=== PATIENT | male | born 1960 | race Caucasian/White ===

== ENCOUNTER 2016-08-28 12:38 | Observation (INO) | payer SELFPAY ==
[~2016-08-28] VITALS: Ht 172.7 cm; Wt 114.5 kg
[2016-08-28 13:10] LABS: BASOPHILS 0.2 % (0.0-2.0); EOSINOPHILS 1.3 % (0-7); HEMATOCRIT 50.4 % (42.0-54.0); HEMOGLOBIN 17.5 g/dL (13.5-17.5); IMMATURE GRANULOCYTES 0.2 % (0-5); LYMPHOCYTES 20.5 % (15-50); MCH 30.6 pg (26.0-34.0); MCHC 34.7 g/dL (31.0-37.0); MCV 88.1 fL (80.0-100.0); MEAN PLATELET VOLUME 11.4 fL (7.4-10.4); MONOCYTES 8.6 % (2-11); NEUTROPHILS 69.2 % (40-80); PLATELET COUNT 201 10x3/uL (130-400); RBC 5.72 10x6/uL (4.20-6.10); RDW 13.9 % (11.5-14.5); WBC 12.1 10x3/uL (4.8-10.8)
[2016-08-28 13:41] LABS: ALBUMIN 3.8 g/dL (3.4-5.0); ALKALINE PHOSPHATASE 69 U/L (46-116); ALT (SGPT) 33 U/L (10-68); BILIRUBIN - TOTAL 0.51 mg/dL (0.2-1.3); CALC OSMOLALITY 279 mosm/kg (275-300); CALCIUM 9.5 mg/dL (8.5-10.1); CHLORIDE - SERUM 104 mmol/L (98-107); CREATININE - SERUM 0.8 mg/dL (0.6-1.3); GLUCOSE 117 mg/dL (74-106); POTASSIUM - SERUM 4.1 mmol/L (3.5-5.1); PROTEIN - SERUM 7.2 g/dL (6.4-8.2); SODIUM 140 mmol/L (136-145); UREA NITROGEN 12 mg/dL (7-18); eGFR NON AFRICAN AMERICAN > 90 mL/min (90-120)
[2016-08-28 13:48] LABS: CHOL - HDL RATIO 6.6 ratio (2.3-4.9); CHOLESTEROL, TOTAL 225 mg/dL (0-200); CKMB 1.1 U/L (0.0-3.6); CREATINE KINASE 135 UL (21-232); HDL CHOLESTEROL 34 mg/dL (32-96); LDL CHOLESTEROL 112 mg/dL (0-100); LDL-HDL RATIO 3.3 ratio (1.5-3.5); TRIGLYCERIDE 398 mg/dL (30-200)
[2016-08-28 13:50] LABS: TROPONIN-I < 0.017 ng/mL (0.000-0.060)
[2016-08-28 17:43] VITALS: BP 174/88; Ht 172.7 cm; Wt 114.5 kg
--- NOTE | 2016-08-28 19:42 | NUR ---
NICOTINE PATCH PLACED TO RIGHT ARM, PT DENIES PAIN OR NEEDS.
[2016-08-28 20:34] VITALS: BP 186/105
--- NOTE | 2016-08-28 22:36 | NUR ---
EYES CLOSED, RESPEPERATIONS EVEN, NO S/S DISTRESS NOTED.
[2016-08-29 00:26] VITALS: BP 151/97
--- NOTE | 2016-08-29 01:00 | NUR ---
SPOKE WITH DR TAYLOR, INFORMED HIM OF ELEVATED BP OF 186/105 AND THAT PT IS C/O TIGHNESS IN CHEST. ORDERS GIVNE TO GIVE TYLENOL 1000 MG EVERY 6 HOURS NEEDED FOR PAIN AND GIVE NORVASC 5 MG NOW AND DAILY. NOTIFIED DOPE WEIGH OPERATOR.
[2016-08-29 02:25] LABS: BASOPHILS 0.2 % (0.0-2.0); EOSINOPHILS 2.7 % (0-7); HEMATOCRIT 47.7 % (42.0-54.0); HEMOGLOBIN 16.6 g/dL (13.5-17.5); IMMATURE GRANULOCYTES 0.3 % (0-5); LYMPHOCYTES 17.6 % (15-50); MCH 30.8 pg (26.0-34.0); MCHC 34.8 g/dL (31.0-37.0); MCV 88.5 fL (80.0-100.0); MEAN PLATELET VOLUME 11.4 fL (7.4-10.4); MONOCYTES 7.7 % (2-11); NEUTROPHILS 71.5 % (40-80); PLATELET COUNT 168 10x3/uL (130-400); RBC 5.39 10x6/uL (4.20-6.10); RDW 13.8 % (11.5-14.5); WBC 12.4 10x3/uL (4.8-10.8)
[2016-08-29 02:47] LABS: ALBUMIN 3.4 g/dL (3.4-5.0); ALKALINE PHOSPHATASE 62 U/L (46-116); ALT (SGPT) 28 U/L (10-68); BILIRUBIN - TOTAL 0.51 mg/dL (0.2-1.3); CALC OSMOLALITY 274 mosm/kg (275-300); CALCIUM 8.5 mg/dL (8.5-10.1); CARBON DIOXIDE 26.5 mmol/L (21.0-32.0); CHLORIDE - SERUM 102 mmol/L (98-107); GLUCOSE 126 mg/dL (74-106); PROTEIN - SERUM 6.7 g/dL (6.4-8.2); SODIUM 137 mmol/L (136-145); UREA NITROGEN 11 mg/dL (7-18); eGFR NON AFRICAN AMERICAN 82 mL/min (90-120)
[2016-08-29 02:53] LABS: POTASSIUM - SERUM 3.3 mmol/L (3.5-5.1); TROPONIN-I < 0.017 ng/mL (0.000-0.060)
--- NOTE | 2016-08-29 02:57 | NUR ---
SPOKE WITH DR TAYLOR, INFORMED HIM OF ELEVATED BP OF 186/105 AND THAT PT IS COMPLAINING OF TIGHNESS IN CHEST. ORDERS GIVEN TO GIVE TYLENOL 1000 MG EVERY 6 HOURS NEEDED FOR PAIN AND NORVASC 5 MG NOW AND DAILY. ASSEMBLY MACHINE OFFBEARER Claudio JACOB RN NOTIFIED.
[2016-08-29 04:19] VITALS: BP 149/102
--- NOTE | 2016-08-29 04:38 | NUR ---
BUYING INTERN AT BED SIDE TO OBTAIN VITALS, NO NEEDS VOICED.
--- NOTE | 2016-08-29 07:40 | NUR ---
RECEIVED PT IN BED AAOX4 RESP UNLABORED PT DENIES ANY NEEDS OR DISCOMFORT AT THIS TIME NAD NOTED
[2016-08-29 07:58] VITALS: BP 164/109
[2016-08-29 11:54] VITALS: BP 168/97
[2016-08-29 15:39] VITALS: BP 171/97
--- NOTE | 2016-08-29 17:09 | NUR ---
ASSUMED CARE OF PT. C/O HEADACHE. TYLENOL GIVEN FOR RELIEF. WILL MONITOR
--- NOTE | 2016-08-29 19:57 | NUR ---
INITIAL ROUNDS MADE. PT SITTING UP IN BED WATCHING TV. NO NEEDS OR C/O VOICED AT THIS TIME. CALL LIGHT IN REACH. WILL CONT TO MONITOR.
[2016-08-29 20:19] VITALS: BP 176/104
[2016-08-30 00:38] VITALS: BP 155/101
[2016-08-30 04:25] VITALS: BP 160/91
[2016-08-30 05:49] LABS: BASOPHILS 0.2 % (0.0-2.0); EOSINOPHILS 2.4 % (0-7); HEMATOCRIT 48.3 % (42.0-54.0); HEMOGLOBIN 16.7 g/dL (13.5-17.5); IMMATURE GRANULOCYTES 0.2 % (0-5); LYMPHOCYTES 16.4 % (15-50); MCH 30.8 pg (26.0-34.0); MCHC 34.6 g/dL (31.0-37.0); MEAN PLATELET VOLUME 11.4 fL (7.4-10.4); MONOCYTES 7.3 % (2-11); NEUTROPHILS 73.5 % (40-80); PLATELET COUNT 175 10x3/uL (130-400); RBC 5.43 10x6/uL (4.20-6.10); RDW 13.9 % (11.5-14.5)
[2016-08-30 05:58] LABS: HEMOGLOBIN A1C 5.6 % (4.8-6.0)
[2016-08-30 06:25] LABS: ALBUMIN 3.2 g/dL (3.4-5.0); ALKALINE PHOSPHATASE 58 U/L (46-116); ALT (SGPT) 28 U/L (10-68); CALC OSMOLALITY 273 mosm/kg (275-300); CARBON DIOXIDE 27.2 mmol/L (21.0-32.0); CHLORIDE - SERUM 103 mmol/L (98-107); CKMB 0.6 U/L (0.0-3.6); GLUCOSE 125 mg/dL (74-106); PROTEIN - SERUM 6.7 g/dL (6.4-8.2); SODIUM 137 mmol/L (136-145); TROPONIN-I < 0.017 ng/mL (0.000-0.060); UREA NITROGEN 10 mg/dL (7-18); eGFR NON AFRICAN AMERICAN 82 mL/min (90-120)
[2016-08-30 06:26] LABS: POTASSIUM - SERUM 3.8 mmol/L (3.5-5.1)
--- NOTE | 2016-08-30 07:30 | NUR ---
RECEIVED PT IN BED AAOX4 RESP UNLABORED DENIES ANY DISCOMFORT REFUSES TO WEAR TELEMETRY STATES HE IS GOING HOME TODAY ONE WAY OR ANOTHER HAS AGREED TO WAIT AND SEE THE DOCTOR
[2016-08-30 08:38] VITALS: BP 133/89
[2016-08-30] MEDS ORDERED: NORVASC10 MG PO (11:22)
[2016-08-30] MEDS ORDERED: LISINOPRIL10 MG PO (11:22)
--- NOTE | 2016-08-30 12:58 | NUR ---
REVIEWED DISCHARGE INSTRUCTIONS WITH PT STATES UNDERSTANDING COPY GIVEN PT HAD DCD OWN SALINE LOCK SITE FREE OF REDNESS OR EDEMA DID NOT SEE IV CATHETER PT DISCHARGED HOME IN STABLE CONDITION WITH ALL PERSONAL BELONGINGS LEFT UNIT WALKING REFUSED W/C
== END 2016-08-30 12:58 | disposition home or self-care (01) ==
LOC: D.ER 12:38 → OBSVTIME 16:00 → D.M2 16:00
PROVIDERS: Emergency Medicine; Family Medicine; ADMIT Family Medicine
DX: I10 Essential (primary) hypertension (principal); R07.9 Chest pain, unspecified; E78.5 Hyperlipidemia, unspecified; R73.9 Hyperglycemia, unspecified; Z72.0 Tobacco use

== ENCOUNTER 2019-10-15 22:19 | Inpatient (IN) | payer OTHER ==
[~2019-10-15] VITALS: Ht 172.7 cm; Wt 118.2 kg
--- NOTE | ~2019-10-15 | HEMODYNAMI ---
PATIENT:GLENDY PENG MEDICAL RECORD: [id number] : 60 LOCATION:[facility] ADMISSION DATE: 10/16/19 Generatedon:10/17/20197:42 Patient name: GLENDY PENG Patient #: [id number] SSN: : 1960 Date of study: 10/17/2019 Page: Of Hemodynamic Procedure Report Patient Data Patient Demographics Procedure consent was obtained First Name: GLENDY Gender: Male Last Name: GINETTE : 1960 Patient #: [id number] Age: 59 year(s) Race: Unknown Additional ID: [id number] Contact details [address]: [address] [place] [address] State: [place] City: [place] Zip code: [address] Past Medical History Allergies: No known allergies Admission Admission Data Admission Date: 10/16/2019 Admission Time: 14:01 Room #: [facility] Height (in.): 68 BSA: 2.29 (m2) Height (cm.): 172.72 BMI: 39.55 (kg/m2) Weight (lbs.): 260.15 Weight (kg.): 118 Lab Results Lab Result Date: 10/17/2019 Lab Result Time: 0:00 Biochemistry Name Units Result Min Max BUN mg/dl 12 --(-*--)-- 7 18 Creatinine mg/dl 1.1 --(--*-)-- 0.6 1.3 eGFR ml/min 73.46396 *-(----)-- 90 120 NONAFRICAN CBC Name Units Result Min Max Hematocrit % 46.6 --(-*--)-- 42 54 Hemoglobin g/dl 15.5 --(-*--)-- 13.5 17.5 Procedure Procedure Types Cath Procedure Diagnostic Procedure LHC [facility] w/Coronaries Sedation Charges Moderate Sedation up to 15 minutes Procedure Description Procedure Date Procedure Date: 10/17/2019 Procedure Start Time: 7:28 Procedure End Time: 7:38 Procedure Staff Name Function Michael Pepe MD Performing Physician Denice Simms RT Monitor My Pathak RT Scrub Ольга Huizar RN Nurse Procedure Data Cath Procedure Fluoroscopy Diagnostic fluoroscopy Total fluoroscopy Time: 1.7 time: 1.7 min min Diagnostic fluoroscopy Total fluoroscopy dose: 922 dose: 922 mGy mGy Contrast Material Contrast Material Type Amount (ml) Isovue 300 53 Entry Location Entry Primary Successful Side Size Upsize Upsize Entry Closure Hopson ccessful Closure Location (Fr) 1 (Fr) 2 (Fr) Remarks Device Remarks Radial Right 6 Fr Mechanical artery Short Compression Estimated blood loss: 5 ml Diagnostic catheters Device Type Used For End Catheter Placement DIAGNOSTIC Luke 110cm Multi-vessel 5Fr catheter ([id number]) Angiography Procedure Complications No complications Procedure Medications Medication Administration Route Dosage Oxygen etCO2 Nasal cannula 2 l/min Lidocaine 2% added to field 20 Heparin Flush Bag added to field 2 bags (1000units/500ml NS) 0.9% NaCl I.V. 100 ml/hr Radial Cocktail I.A. 1 syringe (Verapamil 2mg/Nitro 400mcg/Heparin 1500units) Versed I.V. 1 mg Fentanyl I.V. 50 mcg Versed I.V. 1 mg Fentanyl I.V. 50 mcg Hemodynamics Rest BSA: 2.29 (m2) HGB: 15.5 (g/dl) O2 Consumption: Estimated: 261.09 (ml/min) O2 Co nsumption indexed: Estimated:114.01 (ml/min/m) Heart Rate: 60 (bpm) Pressure Samples Time Site Value (mmHg) Purpose Heart Use Rate(bpm) 7:32 LV 133/-20,1 Snapshot 59 7:32 AO 106/69(85) Pullback 72 Gradients Valve Time Site Site 2 Mean SEP/DFP Peak To Heart Use 1 (mmHg) (sec/min) Peak Rate (mmHg) (bpm) Aortic 7:32 LV AO 11 16 72 106/69(85) Calculations Valve P-P Mean Valve Index Valve Source Name Gradient Area Flow (cm2) Aortic 11 11 Snapshots Pre Cath Intra NCS Post Cath Vital Signs Time Heart Resp SPO2 etCO2 NIBP (mmHg) Rhythm Pain Sedation Rate (ipm) (%) (mmHg) Status Level (bpm) 7:24:05 64 24 97 24.6 141/92(116) NSR 0 (11) 10(A) , No pain 7:28:19 62 26 97 26.1 145/94(118) NSR 0 (11) 10(A) , No pain 7:32:38 60 25 94 8.9 114/76(96) NSR 0 (11) 9(A) , No pain 7:36:46 67 21 94 13.4 120/79(91) NSR 0 (11) 10(A) , No pain Medications Time Medication Route Dose Verified Delivered Reason Notes Effectiveness by by 7:20:16 Oxygen etCO2 2 l/min Michael Buffie used for Nasal Afshin Huizar RN procedure cannula 7:20:23 Lidocaine 2% added 20ml Michael Michael for local to vial Afshin Pepe MD anesthetic field 7:20:28 Heparin Flush added 2 bags Michael Michael used for Bag to Afshin Pepe MD procedure (1000units/500ml field NS) 7:20:35 0.9% NaCl I.V. 100 Michael Buffie Per ml/hr Afshin Huizar RN physician 7:26:49 Versed I.V. 1 mg Michael Buffie for sedation Afshin Huizar RN 7:26:54 Fentanyl I.V. 50 mcg Michael Buffie for sedation Afshin Huizar RN 7:28:43 Radial Cocktail I.A. 1 Michael Michael for (Verapamil syringe Afshin Pepe MD vasodilation 2mg/Nitro 400mcg/Heparin 1500units) 7:31:24 Versed I.V. 1 mg Michael Buffie for sedation Afshin Huizar RN 7:31:28 Fentanyl I.V. 50 mcg Michael Buffie for sedation Afshin Huizar RN Procedure Log Time Note 6:40:30 Ольга Huizar RN sent for patient. Start room use. 6:42:19 Informed consent obtained and on chart 6:43:49 Procedure Status Urgent Heart Cath (IP). 6:43:50 Time tracking: Regular hours (M-F 7:00 - 5:00) 6:43:53 Plan of Care:Hemodynamics will remain stable., Cardiac rhythm will remain stable., Comfort level will be maintained., Respiratory function will remain adequate., Patient/ family verbilizes understanding of procedure., Procedure tolerated without complication., Recovers from procedure without complications.. 6:43:57 H&P Date Dictated: 10/17/2019 ER History on chart.. 6:44:13 Patient allergic to No known allergies 6:44:51 Lab Result : BUN 12 mg/dl 6:44:51 Lab Result : Creatinine 1.1 mg/dl 6:44:51 Lab Result : eGFR NONAFRICAN 73.57361 ml/min 6:44:51 Lab Result : Hemoglobin 15.5 g/dl 6:44:51 Lab Result : Hematocrit 46.6 % 6:45:29 Patient Weight : 260.15 lbs 6:45:32 Patient Height : 68 inches 6:51:05 UNABLE TO DO RISK ASSESMENT. WEBSITE DOWN 7:11:34 Patient received from Med II to CCL 2 Alert and oriented. Tansferred to table in Supine position. 7:20:16 Oxygen 2 l/min etCO2 Nasal cannula was administered by Ольга Huizar RN; used for procedure; Verbal order read back and verified. 7:20:23 Lidocaine 2% 20ml vial added to field was administered by Michael Pepe MD; for local anesthetic; Verbal order read back and verified. 7:20:28 Heparin Flush Bag (1000units/500ml NS) 2 bags added to field was administered by Michael Pepe MD; used for procedure; Verbal order read back and verified. 7:20:35 0.9% NaCl 100 ml/hr I.V. was administered by Ольга Huizar RN; Per physician; Verbal order read back and verified. 7:22:56 Warm blankets applied, and elana hugger turned on for patient comfort. 7:22:57 Correct patient and procedure confirmed by team. 7:22:58 ECG and BP/O2 sat monitors applied to patient. 7:22:58 Vital chart was started 7:22:59 Baseline sample Acquired. 7:23:02 Rhythm: sinus rhythm 7:23:04 Full Disclosure recording started 7:23:05 Pre-procedure instructions explained to patient. 7:23:05 Pre-op teaching completed and patient verbalized understanding. 7:23:08 Family in patients room. 7:23:09 Patient NPO since Midnight. 7:23:18 Is the patient allergic to Iodine/contrast media? No. 7:23:19 Was the patient premedicated? Yes 7:23:21 Is patient on blood thinner?No 7:23:22 Patient diabetic? No. 7:23:27 Previous problem with sedation/anesthesia? No ? 7:23:29 Snore? Yes 7:23:30 Sleep apnea? No 7:23:31 Deviated septum? No 7:23:32 Opens mouth fully? Yes 7:23:33 Sticks out tongue? Yes 7:23:36 Airway obstruction? Yes COPD 7:23:39 Dentures? No ? 7:23:44 Pre procedure: right dorsailis pedis pulse 2+ Normal; easily identifiable; not easily obliterated 7:23:46 Pre procedure: left dorsailis pedis pulse 2+ Normal; easily identifiable; not easily obliterated 7:23:47 Modified Neo's test Radial < 7 seconds 7:23:49 Patient pain scale 0/10 ?. 7:23:54 IV patent on arrival in left hand with 0.9% NaCl at O. 7:23:56 Lab results completed and on chart. 7:24:21 Stress Test: no; N/A ? 7:25:13 Right Radial & Right Groin area was prepped with chlora-prep and draped in sterile fashion 7:25:14 Alarms reviewed by R. N. 7:25:15 Sharps counted by scrub and verified by R.N. 7:25:16 Physician arrived 7:25:17 --------ALL STOP TIME OUT------ 7:25:17 Final Timeout: patient, procedure, and site verified with staff and physician. All members of the team are in agreement. 7:25:19 Right Radial & Right Groin site verified by team. 7:25:22 Fire Safety Assessment: A--An alcohol-based skin anteseptic being used preoperatively., C--Open oxygen or nitrous oxide is being used., D--An ESU, laser, or fiber-optic light is being used. 7:25:25 Physical assessment completed. ASA score P 2 - A patient with mild systemic disease as per Michael Pepe MD. 7:25:30 2) 60-89 Mildly reduced kidney function, and other findings (as for stage 1) point to kidney disease. 7:25:33 Maximum allowable contrast dose (3.7 X eGFR X 0.75)203 ml. 7:25:37 Sedation plan: IV Moderate Sedation Medication:Versed, Fentanyl 7:25:39 Use device set Radial Dx or PCI 7:25:40 ACIST Syringe (38312) opened to sterile field. 7:25:40 Medline Cath Pack ([id number]) opened to sterile field. 7:25:41 Bag Decanter (2001S) opened to sterile field. 7:25:41 ACIST Hand Control (43876) opened to sterile field. 7:25:41 ACIST Manifold (90666) opened to sterile field. 7:25:42 Tegaderm 4 x 4 (1626W) opened to sterile field. 7:25:42 MBrace Wrist Support ([id number]) opened to sterile field. 7:25:43 NEEDLE Cook 21G 4cm Radial (Y77230) opened to sterile field. 7:25:44 SHEATH 6FR RAIN (6289359) opened to sterile field. 7:25:45 EMERALD Guide Wire (426-307) opened to sterile field. 7:26:49 Versed 1 mg I.V. was administered by Ольга Huizar RN; for sedation; Verbal order read back and verified. 7:26:54 Fentanyl 50 mcg I.V. was administered by Ольга Huizar RN; for sedation; Verbal order read back and verified. 7:28:35 Procedure started. 7:28:40 Local anesthetic to right radial artery with Lidocaine 2% by Michael Pepe MD.INITIAL ACCESS ONLY 7:28:43 Radial Cocktail (Verapamil 2mg/Nitro 400mcg/Heparin 1500units) 1 syringe I.A. was administered by Michael Pepe MD; for vasodilation; Verbal order read back and verified. 7:30:43 A DIAGNOSTIC Luke 110cm 5Fr catheter (863854) was advanced over the wire and used for Multi-vessel Angiography. 7:31:24 Versed 1 mg I.V. was administered by Ольга Huizar RN; for sedation; Verbal order read back and verified. 7:31:28 Fentanyl 50 mcg I.V. was administered by Ольга Huizar RN; for sedation; Verbal order read back and verified. 7:31:31 Zero performed for pressure channel P1 7:32:15 LV hemodynamics recorded. 7:32:16 LV gram done using CABRERA 7:32:18 Injector settings: Ml/sec: 5, Volume: 15, 7:32:44 EF : 50 % 7:33:29 LCA angiography performed. 7:33:32 Injector settings: Ml/sec: 3, Volume: 6, 7:35:24 RCA angiography performed. 7:35:26 Injector settings: Ml/sec: 3, Volume: 6, 7:35:50 Catheter removed. 7:36:26 ZEPHYR REGULAR TR BAND (257541) opened to sterile field. 7:36:44 A 6 Fr Short sheath was inserted into the Right Radial artery 7:37:18 Sheath removed intact; hemostasis achieved with Mechanical Compression to the Right Radial artery. 7:37:19 Procedure ended.(Physican Out) 7:37:32 Fluoroscopy time 01.70 minutes. 7:37:36 Flurop Dose total: 922 7:37:36 Fluoroscopy dose: 922 mGy 7:37:43 Dose Area Product 60994 mGy/cm. 7:37:46 Contrast amount:Isovue 300 53ml. 7:37:48 Maximum allowable dose exceeded? No. 7:37:49 Sharps counted by scrub and verified by R.N. 7:37:52 [place] band inflated with 10cc of air. 7:37:53 Insertion/operative site no bleeding no hematoma. 7:37:55 Post-op/insertion site Right Femoral artery dressed using a 4 x 4 and Tegaderm. 7:37:57 Post Procedure Pulses reassessed and unchanged 7:37:59 Post procedure rhythm: unchanged. 7:38:06 Estimated blood loss: 5 ml 7:38:08 Post procedure instruction explained to patient.Patient verbalizes understanding. 7:38:08 Patient needs reinforcement of post procedure teaching. 7:38:18 Procedure type changed to Cath procedure, Diagnostic procedure, LHC, LHC w/Coronaries, Sedation Charges, Moderate Sedation up to 15 minutes 7:38:40 Procedure and supply charges have been captured, reviewed, submitted and are correct. 7:38:45 Procedure Complication : No complications 7:38:47 Vital chart was stopped 7:38:49 [facility] Findings: mild to moderate CAD (<70%) 7:38:51 Operative report dictated upon procedure completion. 7:38:51 See physician's report for complete and final results. 7:38:54 Report given to [facility]. 7:38:57 Patient transfered to [facility] with Stretcher. 7:38:58 Procedure ended. 7:38:58 Full Disclosure recording stopped 7:39:05 End room use (Document Last) Device Usage Item Name Manufacture Quantity Catalog Hospital Part Current Minima l Lot# / Number Charge Number Stock Stock Serial# Code ACIST Acist 1 20079 182583 955381 186256 20 Syringe Medical (78588) Systems Inc Medline Medline 1 [id number] 156578 23714 495991 5 Cath Pack ([id number]) Bag Microtek 1 2001S 209128 20725 588159 5 Decanter Medical Inc. () ACIST Hand Acist 1 61679 472991 400632 084233 5 Control Medical (55650) Systems Inc ACIST Acist 1 75286 190808 099833 388613 5 Manifold Medical (39002) Systems Inc Tegaderm 4 3M 1 1626W 054325 552027 071160 5 x 4 (1626W) MBrace Advanced 1 140-0250-00 107858 59985 649814 5 Wrist Vascular Support Dynamics (202072232) NEEDLE Cook Cook Medical 1 V85380 746745 470447 052225 5 21G 4cm Radial (S63571) SHEATH 6FR Cardinal 1 6139990 866832 5212708 758533 5 RAIN Health (2627112) EMERALD Cardinal 1 781-512 788852 538461 928424 5 Guide Wire Health (485-264) DIAGNOSTIC Terumo 1 405023 214107 484615 274326 5 Luke 110cm 5Fr catheter (767091) ZEPHYR Cardinal 1 471951 147673 3841813 175510 5 REGULAR TR Health BAND (084983) Signature Audit [place] Stage Time Signature Unsigned Intra-Procedure 10/17/2019 Ольга Huizar RN 7:40:59 AM Intra-Procedure 10/17/2019 Michael Pepe MD 7:42:36 AM Signatures Performing Physician : Signature : Michael Pepe MD Date : Time : Monitor : Denice Simms RT Signature : Date : Time : Nurse : Ольга Huizar RN Signature : Date : Time : [address] [place] [address]
[~2019-10-15 22:19] MED LIST: LISINOPRIL10 MG PO; NORVASC10 MG PO
[2019-10-15 23:05] LABS: BASOPHILS 0.3 % (0-2); EOSINOPHILS 2.3 % (0-7); HEMATOCRIT 49.5 % (42.0-54.0); HEMOGLOBIN 16.9 g/dL (13.5-17.5); IMMATURE GRANULOCYTES 0.4 % (0-5); LYMPHOCYTES 23.9 % (15-50); MCH 30.6 pg (26.0-34.0); MCHC 34.1 g/dL (31.0-37.0); MCV 89.7 fL (80.0-100.0); MEAN PLATELET VOLUME 10.7 fL (7.4-10.4); MONOCYTES 6.8 % (2-11); NEUTROPHILS 66.3 % (40-80); RBC 5.52 10x6/uL (4.20-6.10); RDW 14.3 % (11.5-14.5)
--- NOTE | 2019-10-15 23:05 | NUR ---
B/P 132/79 AFTER 1ST NITRO. STATES PAIN HAS ACTUALLY "GONE UP" SINCE THE NITRO WAS GIVEN. SECOND NITRO GIVEN SL.
[2019-10-15 23:06] LABS: PLATELET COUNT 220 10x3/uL (130-400)
--- NOTE | 2019-10-15 23:13 | NUR ---
PT STATES NO CHANGE AFTER SECOND NITRO.
[2019-10-15 23:14] LABS: CALC OSMOLALITY 278 mosm/kg (275-300); CALCIUM 9.8 mg/dL (8.5-10.1); CARBON DIOXIDE 23.4 mmol/L (21.0-32.0); CHLORIDE - SERUM 103 mmol/L (98-107); CREATININE - SERUM 0.9 mg/dL (0.6-1.3); GLUCOSE 130 mg/dL (74-106); POTASSIUM - SERUM 3.5 mmol/L (3.5-5.1); SODIUM 139 mmol/L (136-145); UREA NITROGEN 11 mg/dL (7-18); eGFR NON AFRICAN AMERICAN > 90 mL/min (90-120)
[2019-10-15 23:15] LABS: APTT 31.1 SECONDS (22.8-39.4); INR 0.96 (0.85-1.17); PROTIME 12.7 SECONDS (11.6-15.0)
[2019-10-15 23:34] LABS: ALBUMIN 3.6 g/dL (3.4-5.0); ALKALINE PHOSPHATASE 58 U/L (30-120); ALT (SGPT) 32 U/L (10-68); AMYLASE - SERUM 29 U/L (25-115); BILIRUBIN - TOTAL 0.37 mg/dL (0.2-1.3); CKMB 0.9 U/L (0.0-3.6); CREATINE KINASE 92 UL (21-232); LIPASE 257 U/L (73-393); MAGNESIUM - SERUM 1.9 mg/dL (1.8-2.4); PRO BNP 93 pg/mL (0-125); PROTEIN - SERUM 7.2 g/dL (6.4-8.2); TROPONIN-I < 0.017 ng/mL (0.000-0.060)
--- NOTE | 2019-10-15 23:58 | NUR ---
PT DENIES RELIEF IN DISCOMFORT AFTER RECEIVING GI COCKTAIL. EDP NOTIFIED. PT RATES PAIN 3/.
--- NOTE | 2019-10-16 01:14 | NUR ---
PT TO ROOM 2114 VIA WHEELCHAIR ACCOMPANIED BY HOSPITAL STAFF. AMBULATED TO BED AND BATHROOM WITHOUT ISSUE.
[2019-10-16 02:23] VITALS: BP 158/98; Ht 172.7 cm; Wt 118.2 kg
[2019-10-16] MEDS ORDERED: LISINOPRIL-HCT1 EAC4 PO (02:36)
[2019-10-16 04:30] VITALS: BP 113/74
[2019-10-16 07:17] LABS: CKMB 0.8 U/L (0.0-3.6); CREATINE KINASE 67 UL (21-232)
[2019-10-16 07:24] LABS: TROPONIN-I < 0.017 ng/mL (0.000-0.060)
[2019-10-16 09:37] LABS: BASOPHILS 0.3 % (0-2); EOSINOPHILS 2.9 % (0-7); HEMATOCRIT 46.6 % (42.0-54.0); HEMOGLOBIN 15.5 g/dL (13.5-17.5); IMMATURE GRANULOCYTES 0.3 % (0-5); LYMPHOCYTES 24.8 % (15-50); MCH 30.4 pg (26.0-34.0); MCHC 33.3 g/dL (31.0-37.0); MCV 91.4 fL (80.0-100.0); MEAN PLATELET VOLUME 10.9 fL (7.4-10.4); MONOCYTES 9.8 % (2-11); NEUTROPHILS 61.9 % (40-80); PLATELET COUNT 197 10x3/uL (130-400); RDW 14.5 % (11.5-14.5); WBC 11.1 10x3/uL (4.8-10.8)
[2019-10-16 09:58] LABS: THYROID STIMULATING HORMONE 1.14 uIU/mL (0.36-3.74)
[2019-10-16 10:37] VITALS: BP 117/70
[2019-10-16 10:53] LABS: CKMB 0.6 U/L (0.0-3.6); CREATINE KINASE 69 UL (21-232); TROPONIN-I < 0.017 ng/mL (0.000-0.060)
[2019-10-16 12:32] LABS: ANION GAP 11.4 mmol/L (8-16); CARBON DIOXIDE 27.6 mmol/L (21.0-32.0); CHOL - HDL RATIO 5.1 ratio (2.3-4.9); CREATININE - SERUM 1.1 mg/dL (0.6-1.3); LDL-HDL RATIO 3.1 ratio (1.5-3.5)
[2019-10-16 14:17] VITALS: BP 125/77
--- NOTE | 2019-10-16 19:32 | NUR ---
PATIENT IS ALERT AND ORIENTED, RESTING COMFORTABLY IN BED. RESPIRATIONS ARE EVEN AND UNLABORED. NO S/S OF DISTRESS. NO C/O PAIN. CALLLIGHT WITHIN REACH. WILL CPOC.
[2019-10-16 19:47] VITALS: BP 116/65
[2019-10-17 00:26] VITALS: BP 117/71
[2019-10-17 03:57] VITALS: BP 117/70
[2019-10-17 06:17] LABS: BASOPHILS 0.3 % (0-2); EOSINOPHILS 4.3 % (0-7); HEMATOCRIT 46.1 % (42.0-54.0); HEMOGLOBIN 15.5 g/dL (13.5-17.5); IMMATURE GRANULOCYTES 0.3 % (0-5); LYMPHOCYTES 18.1 % (15-50); MCH 30.5 pg (26.0-34.0); MCHC 33.6 g/dL (31.0-37.0); MCV 90.7 fL (80.0-100.0); MEAN PLATELET VOLUME 11.2 fL (7.4-10.4); MONOCYTES 8.2 % (2-11); NEUTROPHILS 68.8 % (40-80); PLATELET COUNT 190 10x3/uL (130-400); RBC 5.08 10x6/uL (4.20-6.10); RDW 14.4 % (11.5-14.5)
[2019-10-17 06:35] LABS: CALCIUM 8.2 mg/dL (8.5-10.1); CARBON DIOXIDE 27.5 mmol/L (21.0-32.0); CHOL - HDL RATIO 5.3 ratio (2.3-4.9); CREATININE - SERUM 1.1 mg/dL (0.6-1.3); LDL-HDL RATIO 2.4 ratio (1.5-3.5); POTASSIUM - SERUM 3.5 mmol/L (3.5-5.1)
--- NOTE | 2019-10-17 08:02 | NUR ---
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 VS WNL. RIGHT WRIST STABLE WITH Z-BAND INTACT. WILL MONITOR.
--- NOTE | 2019-10-17 10:42 | NUR ---
Z-BAND DCD WITHOUT BLEEDING OR HEMATOMA NOTED.
[2019-10-17 12:00] VITALS: BP 143/83
[2019-10-17 12:42] LABS: UDS - AMPHET NEGATIVE QUAL (NEGATIVE); UDS - BARB NEGATIVE QUAL (NEGATIVE); UDS - BENZO POSITIVE QUAL (NEGATIVE); UDS - COCAINE NEGATIVE QUAL (NEGATIVE); UDS - OPIATE POSITIVE QUAL (NEGATIVE); UDS - PCP NEGATIVE QUAL (NEGATIVE); UDS - THC NEGATIVE QUAL (NEGATIVE)
[2019-10-17 13:01] LABS: GLUCOSE NEGATIVE (NEGATIVE); KETONE NEGATIVE (NEGATIVE); NITRITE NEGATIVE (NEGATIVE)
[2019-10-17 13:02] LABS: BILIRUBIN NEGATIVE (NEGATIVE)
[2019-10-17] MEDS ORDERED: PROTONIX40 MG PO (14:38)
--- NOTE | 2019-10-17 15:47 | MORECARE ---
CASE MANAGEMENT DISCHARGE SUMMARY PATIENT: GLENDY PENG UNIT: [id number] ADM DATE: 10/16/19 AGE: 59 : 60 SEX: M ROOM/BED: D.2114 AUTHOR: MATHEUS,DOC PHYSICIAN: REFERRING PHYSICIAN: AICHA MURRAY MD DATE OF SERVICE: 10/17/19 Discharge Plan Patient Name: GLENDY PENG Facility: [facility]:[place] : 1960 Planned Disposition: Home Anticipated Discharge Date: Discharge Date: Expected LOS: Initial Reviewer: [email or web address] Initial Review Date: 10/17/2019 Generated: 10/17/19 4:47 pm Comments DCP- Discharge Planning Updated by [email or web address]: Lupe Cherry on 10/17/19 2:[address] Patient Name: GLENDY PENG Admission Status: ER Accout number: [id number] Admission Date: 10-16-2019 : 1960 Admission Diagnosis: Attending: AICHA MURRAY Current LOS: 1 Anticipated DC Date: Planned Disposition: Home Primary Insurance: UNINSURED DISCOUNT PLAN Discharge Planning Comments: CM met with patient to complete initial dc planning assessment. CM educated patient on the CM role and verbal consent given by patient to complete assessment. Patient lives at home with his spouse. At discharge patient plans to return and feels this is a safe discharge. CM discussed availability of home health, rehab services, and medical equipment. Patient denied known discharge needs at this time. He has insurance through [employer] and states his gave them the information. I called [employer] and spoke with John Paul, they do have the information and have emailed it to the appropriate people, including Cynthia Alba. CM will continue to follow and will assist as needed with dc plans/needs. [employer] Payroll Consultant: Lupe Cherry DCPIA - Discharge Planning Initial Assessment Updated by [email or web address]: Lupe Cherry on 10/17/19 3:43 pm * Is the patient Alert and Oriented? Yes * How many steps to enter\exit or inside your home? 0/0 * PCP Dr. Delgadillo * Pharmacy [facility] [address] * Preadmission Environment Home with Family * ADLs Independent * Equipment None * List name and contact numbers for known caregivers / representatives who currently or will assist patient after discharge: Nicci Peng - spouse - [phone] * Verbal permission to speak to the caregivers and representatives has been obtained from the patient. Yes * Community resources currently utilized None * Additional services required to return to the preadmission environment? No * Can the patient safely return to the preadmission environment? Yes * Has this patient been hospitalized within the prior 30 days at any hospital? No Patient Name: GLENDY PENG Page 33226 at 1547 All edits/amendments must be made on the electronic document DICTATION DATE: 10/17/191546 SCRATCHER: MI 10/17/191546 RPT#: [id number] DC DATE: STATUS: ADM IN [facility] [address] [place] [address] END OF REPORT
--- NOTE | 2019-10-17 16:06 | NUR ---
IV AND TELEMETRY DCD. DC PLANS GIVEN. UNDERSTANDING VOICED.
--- NOTE | 2019-10-18 08:46 | MORECARE ---
CASE MANAGEMENT DISCHARGE SUMMARY PATIENT: GLENDY PENG UNIT: [id number] ADM DATE: 10/16/19 AGE: 59 : 60 SEX: M ROOM/BED: D.2114 AUTHOR: MATHEUS,DOC PHYSICIAN: REFERRING PHYSICIAN: AICHA MURRAY MD DATE OF SERVICE: 10/18/19 Discharge Plan Patient Name: GLENDY PENG Facility: [facility]:[place] : 1960 Planned Disposition: Home Anticipated Discharge Date: Discharge Date: 10/17/2019 Expected LOS: Initial Reviewer: [email or web address] Initial Review Date: 10/17/2019 Generated: 10/18/19 9:46 am Comments DCP- Discharge Planning Updated by [email or web address]: Lupe Cherry on 10/17/19 2:[address] Patient Name: GLENDY PENG Admission Status: ER Accout number: [id number] Admission Date: 10-16-2019 : 1960 Admission Diagnosis: Attending: AICHA MURRAY Current LOS: 1 Anticipated DC Date: Planned Disposition: Home Primary Insurance: UNINSURED DISCOUNT PLAN Discharge Planning Comments: CM met with patient to complete initial dc planning assessment. CM educated patient on the CM role and verbal consent given by patient to complete assessment. Patient lives at home with his spouse. At discharge patient plans to return and feels this is a safe discharge. CM discussed availability of home health, rehab services, and medical equipment. Patient denied known discharge needs at this time. He has insurance through [employer] and states his gave them the information. I called [employer] and spoke with John Paul, they do have the information and have emailed it to the appropriate people, including Cynthia Alba. CM will continue to follow and will assist as needed with dc plans/needs. Material Control Associate: Lupe Cherry DCPIA - Discharge Planning Initial Assessment Updated by [email or web address]: Lupe Cherry on 10/17/19 3:43 pm * Is the patient Alert and Oriented? Yes * How many steps to enter\exit or inside your home? 0/0 * PCP Dr. Delgadillo * Pharmacy [facility] [address] * Preadmission Environment Home with Family * ADLs Independent * Equipment None * List name and contact numbers for known caregivers / representatives who currently or will assist patient after discharge: Nicci Peng - spouse - [phone] * Verbal permission to speak to the caregivers and representatives has been obtained from the patient. Yes * Community resources currently utilized None * Additional services required to return to the preadmission environment? No * Can the patient safely return to the preadmission environment? Yes * Has this patient been hospitalized within the prior 30 days at any hospital? No Last DP export: 10/17/19 2:47 p Patient Name: GLENDY PENG Page [id number] at 0846 All edits/amendments must be made on the electronic document DICTATION DATE: 10/18/19845 MANAGER OF PROCUREMENT: MI 10/18/19845 RPT#: [id number] DC DATE:10/17/19 STATUS: DIS IN [facility] [address] [place] [address] END OF REPORT
== END 2019-10-17 16:07 | disposition home or self-care (01) | DRG 287 ==
LOC: D.ER 22:19 → OBSVTIME 10-16 00:17 → D.M2 10-16 00:17
PROVIDERS: Emergency Medicine; Internal Medicine Cardiovascular Disease; ADMIT Internal Medicine Nephrology; ATTEND Internal Medicine Nephrology
PROC: B2151ZZ Fluoroscopy of Left Heart using Low Osmolar Contrast (ICD-10-PCS; 2019-10-17)
PROC: 4A023N7 Measurement of Cardiac Sampling and Pressure, Left Heart, Percutaneous Approach (ICD-10-PCS; 2019-10-17)
PROC: B2111ZZ Fluoroscopy of Multiple Coronary Arteries using Low Osmolar Contrast (ICD-10-PCS; principal; 2019-10-17 06:40)
DX: R07.89 Other chest pain (principal); I25.110 Atherosclerotic heart disease of native coronary artery with unstable angina pectoris; I10 Essential (primary) hypertension; F10.129 Alcohol abuse with intoxication, unspecified; Y90.1 Blood alcohol level of 20-39 mg/100 ml